=== PATIENT | male | born 1995 | race Hispanic/Latino ===

== ENCOUNTER 2016-09-25 09:20 | Emergency (ER) | payer OTHER ==
[2016-09-25 09:27] VITALS: BP 100/65; PULSE 71; RESP 16; TEMP 98.7; O2SAT 98
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
== END 2016-09-25 10:54 | disposition home or self-care (01) ==
LOC: ED 09:20
DX: S62.604A Fracture of unspecified phalanx of right ring finger, initial encounter for closed fracture (principal); Y08.89XA Assault by other specified means, initial encounter; Y93.89 Activity, other specified; Y92.89 Other specified places as the place of occurrence of the external cause

== ENCOUNTER 2016-10-27 07:16 | Emergency (ER) | payer OTHER ==
[2016-10-27 07:26] VITALS: TEMP 98; O2SAT 100
[2016-10-27] MEDS ORDERED: Sodium Chloride 0.9% 1,000 ML IV STA (07:40)
[2016-10-27 08:03] LABS: BASO # 0.02 K/mm3 (0.0-2.0); BASO % 0.4 % (0.0-3.0); EOS # 0.1 (0.0-0.7); EOS % 2.6 % (1.5-5.0); GRAN % 56.4 % (50.0-68.0); HEMOGLOBIN 16.3 gm/dL (14.0-18.0); LYMPH # 1.4 (1.2-3.4); LYMPH % 25.7 % (22.0-35.0); MEAN CELL VOLUME 85.4 fL (80.0-105.0); MEAN CORPUSCULAR HEMOGLOBIN 30.9 pg (25.0-35.0); MEAN CORPUSCULAR HGB CONC 36.2 g/dl (31.0-37.0); MEAN PLATELET VOLUME 9.1 fl (7.0-11.0); MONO # 0.8 (0.1-0.6); MONO % 14.9 % (1.0-6.0); PLATELET COUNT 172 10^3/uL (120.0-450.0); RBC 5.27 10^6/uL (3.5-6.1); RED CELL DISTRIBUTION WIDTH 12.9 % (11.5-14.5); WHITE BLOOD COUNT 5.5 10^3/ul (4.5-11.0)
[2016-10-27 08:13] LABS: ALB/GLOB RATIO 1.5 (1.1-1.8); ALBUMIN 4.7 g/dL (3.0-4.8); ALT/SGPT 36 U/L (7-56); AST/SGOT 50 U/L (15-59); BLOOD UREA NITROGEN 15 mg/dL (7-21); CALCIUM 9.9 mg/dL (8.4-10.5); GFR AFRICAN-AMERICAN > 60; GFR NON-AFRICAN AMERICAN > 60
[2016-10-27] MEDS ORDERED: Potassium Chloride 20 mEq ER Tab PO STA (08:21)
--- NOTE | 2016-10-27 08:24 | ED PDOC ---
Arrival/HPI - General Chief Complaint: GI Problem Time Seen by Provider: 10/27/16 07:26 Historian: Patient - History of Present Illness Narrative History of Present Illness (Text): 10/27/16 08:26 A 21 year old male, who denies any past medical history, presents to the emergency department complaining of diarrhea, cough and one episode of vomiting. Reports yellow and watery bowel movements for the past three days. Notes a cough, sore throat, and runny nose for the past week, which he took cold and sinus medication. Mother reports patient may have been exposed to a tick. Patient also notes some soreness and pain in arms, decrease in appetite, subjective fevers at night and nausea but denies any other complaints at this time. Symptom Onset: Sudden Symptom Course: Unchanged Activities at Onset: Rest Context: Home Past Medical History - Provider Review Nursing Documentation Reviewed: Yes - Infectious Disease Hx of Infectious Diseases: None - Psychiatric Hx Psychophysiologic Disorder: No Hx Substance Use: Yes (CANNABIS) - Anesthesia Hx Anesthesia: No Hx Anesthesia Reactions: No Hx Malignant Hyperthermia: No Family/Social History - Physician Review Nursing Documentation Reviewed: Yes Family/Social History: No Known Family HX Smoking Status: Light Smoker < 10 Cigarettes Daily Hx Alcohol Use: Yes Frequency of alcohol use: Socially Hx Substance Use: Yes (CANNABIS) Allergies/Home Meds Allergies/Adverse Reactions: Allergies No Known Allergies Allergy (Verified 10/27/16 07:26) Home Medications: Home Meds Medication Instructions Recorded Confirmed No Known Home Med 10/27/16 10/27/16 Review of Systems - Review of Systems Constitutional: Fatigue, Fevers. absent: Weight Change, Night Sweats Eyes: absent: Vision Changes ENT: Sore Throat, Rhinorrhea, Sinus Congestion. absent: Hearing Changes Respiratory: Cough. absent: SOB, Wheezing Cardiovascular: absent: Calf Pain, Syncope Gastrointestinal: Diarrhea, Nausea, Vomiting, Appetite Changes. absent: Abdominal Pain, Hematochezia, Hematemesis, Food Intolerance Genitourinary Male: absent: Frequency Musculoskeletal: Arthralgias. absent: Back Pain, Neck Pain, Joint Swelling, Myalgias Skin: absent: Rash Neurological: absent: Headache, Dizziness, Focal Weakness Endocrine: absent: Polydipsia Hemo/Lymphatic: absent: Easy Bleeding Psychiatric: absent: Anxiety, Depression Physical Exam - Physical Exam Narrative Physical Exam (Text): 10/27/16 08:24 Head: Atraumatic. Normocephalic. No lesions. Eyes: PERRL. EOMI. Conjunctivae are not pale. ENT: Mucous membranes are moist and intact. Oropharynx is clear and symmetric. No edema. No exudates. No uvular deviation. TMs clear bilaterally with no edema or erythema. Neck: Supple. Full ROM. No JVD. No lymphadenopathy. No palpable cervical nodes. No meningeal signs. Cardiovascular: Regular rate. Regular rhythm. No murmurs, rubs, or gallops. Distal pulses are 2+ and symmetric. Pulmonary/Chest: No evidence of respiratory distress. Clear to auscultation bilaterally. No wheezing, rales or rhonchi. Abdominal: Soft and non-distended. There is no tenderness. No rebound, guarding, or rigidity. No organomegaly. Good bowel sounds. Back: No CVA tenderness. No paraspinal tenderness. Normal inspection. Extremities: No edema. No cyanosis. No clubbing. Full range of motion in all extremities. No calf tenderness. No joint warmth or erythema or edema in the upper or lower extremities. Skin: Skin is warm and dry. No petechiae. No purpura. NO vesicular rash. No urticaria. Neurological: Alert, awake, and oriented to person, place, time, and situation. Normal speech. No meningeal signs. Psychiatric: Good eye contact. Normal interaction, affect, and behavior. Vital Signs Reviewed: Yes Vital Signs Temp Pulse Resp BP Pulse Ox 10/27/16 11:48 81 16 124/82 100 10/27/16 10:13 83 16 122/80 100 10/27/16 07:21 98 F 91 H 19 127/83 100 Temperature: Afebrile Blood Pressure: Normal Pulse: Regular Respiratory Rate: Normal Appearance: Positive for: Well-Appearing, Non-Toxic, Comfortable Pain Distress: None Mental Status: Positive for: Alert and Oriented X 3 Medical Decision Making ED Course and Treatment: 10/27/16 08:11 Impression: A 21 year old male with diarrhea, cough and one episode of vomiting. Differential Diagnosis included but are not limited to: viral illness vs. colitis vs. gastroenteritis vs. dehydration Plan: -- labs -- IV fluids, Pepcid -- Reassess and disposition Prior Visits: Notes and results from previous visits were reviewed. Patient was last seen in the emergency department on 09/25/16 for evaluation of right 4th finger pain. Progress Notes: History supplemented by mother at bedside. There is no prior history of GI illnesses. Mother and patient deny family history of inflammatory bowel disease. No recent antibiotic usage. No recent travel. He reports several loose stools 3 days ago but states stool is "less than 2-3 times a day" but also more formed. No melena or gross bleeding noted. On exam, NO ABDOMINAL PAIN. He is afebile and nontoxic appearing. Patient with generalized aches, but no pathologic rashes noted, no joint warmth or edema. He complains of cough but lungs are clear and no respiratory distress noted. Lyme titer unremarkable on follow-up. Stool culture sent. As he is afebrile, no pain, no respiratory distress, and FEELS BETTER after ivf and toradol, I replaced K orally and discussed in length with patient and mother need for close follow-up as labs and ER visit may be limited in evaluating for underlying rheumatologic process, although patient is comfortable on re-exam and will follow-up with PMD tomorrow he states. - Lab Interpretations Microbiology Results: Microbiology Results 10/27/16 11:17 Urine,Clean Catch Urine Culture - Final No Growth (<1,000 CFU/ML) 10/27/16 10:45 Stool Stool Culture - Final NO SALMONELLA, SHIGELLA OR CAMPYLOBACTER ISOLATED. Lab Results: 10/27/16 07:23 10/27/16 07:23 Lab Results 10/27/16 10:45: Urine Color Light yellow, Urine Appearance Clear, Urine pH 7.0, Ur Specific Stanley <= 1.005, Urine Protein Negative, Urine Glucose (UA) Negative, Urine Ketones Negative, Urine Blood Negative, Urine Nitrate Negative, Urine Bilirubin Negative, Urine Urobilinogen 0.2, Ur Leukocyte Esterase Trace H , Urine RBC Negative, Urine WBC 0 - 2, Ur Epithelial Cells 0 - 2 10/27/16 09:50: Total Creatine Kinase 75 10/27/16 07:23: Lyme Disease Screen <0.90 10/27/16 07:23: Sodium 135, Potassium 3.2 L, Chloride 99, Carbon Dioxide 22, Anion Gap 17, BUN 15, Creatinine 0.9, Est GFR ( Amer) > 60, Est GFR (Non- Af Amer) > 60, Random Glucose 97, Calcium 9.9, Total Bilirubin 1.0, AST 50, ALT 36, Alkaline Phosphatase 85, Total Protein 7.9, Albumin 4.7, Globulin 3.2, Albumin/Globulin Ratio 1.5 10/27/16 07:23: WBC 5.5, RBC 5.27, Hgb 16.3, Hct 45.0, MCV 85.4, MCH 30.9, MCHC 36.2, RDW 12.9, Plt Count 172, MPV 9.1, Gran % 56.4, Lymph % (Auto) 25.7, [place] % (Auto) 14.9 H, Eos % (Auto) 2.6, Baso % (Auto) 0.4, Gran # 3.10, Lymph # 1.4, [place] # 0.8 H, Eos # 0.1, Baso # 0.02 I have reviewed the lab results: Yes - Medication Orders Current Medication Orders: Discontinued Medications Famotidine (Pepcid) 20 mg IVP STAT STA Stop: 10/27/16 07:41 Last Admin: 10/27/16 07:52 Dose: 20 mg Sodium Chloride (Sodium Chloride 0.9%) 1,000 mls @ 1,000 mls/hr IV .Q1H STA Stop: 10/27/16 08:39 Last Admin: 10/27/16 07:53 Dose: 1,000 mls/hr Sodium Chloride (Sodium Chloride 0.9%) 1,000 mls @ 100 mls/hr IV .Q10H [facility] Last Admin: 10/27/16 10:12 Dose: 100 mls/hr Ketorolac Tromethamine (Toradol) 30 mg IVP ONCE ONE Stop: 10/27/16 09:48 Last Admin: 10/27/16 10:13 Dose: 30 mg Potassium Chloride (K-Dur 20 Meq Er Tab) 40 meq PO STAT STA Stop: 10/27/16 08:22 Last Admin: 10/27/16 08:43 Dose: 40 meq - Scribe Statement The provider has reviewed the documentation as recorded by the Rabia Lozano Provider Scribe Attestation: All medical record entries made by the Scribzhane were at my direction and personally dictated by me. I have reviewed the chart and agree that the record accurately reflects my personal performance of the history, physical exam, medical decision making, and the department course for this patient. I have also personally directed, reviewed, and agree with the discharge instructions and disposition. Disposition/Present on Arrival - Present on Arrival Any Indicators Present on Arrival: No History of DVT/PE: No History of Uncontrolled Diabetes: No Urinary Catheter: No History of Decub. Ulcer: No History Surgical Site Infection Following: None - Disposition Have Diagnosis and Disposition been Completed?: Yes Diagnosis: Gastroenteritis, Arthralgia Disposition: HOME/ ROUTINE Disposition Time: 11:30 Patient Plan: Discharge Condition: GOOD Discharge Instructions (ExitCare): Gastroenteritis (ED) Additional Instructions: For any fevers, joint swelling or persistent pain, chest pain or shortness of breath, headaches, nausea or vomiting, bloody stool, abdominal pain, persistent diarrhea, persistent or worsening of symptoms, get rechecked. Follow-up with your primary care doctor in 1-2 days. Forms: [employer] (Japanese)
[2016-10-27] MEDS ORDERED: Sodium Chloride 0.9% 1,000 ML IV SCH (09:30)
[2016-10-27 10:14] VITALS: RESP 16
[2016-10-27 11:02] LABS: URINE BILIRUBIN NEGATIVE (NEGATIVE); URINE BLOOD NEGATIVE (NEGATIVE); URINE GLUCOSE (UA) NEGATIVE (NEGATIVE); URINE LEUKOCYTE ESTERASE TRACE Leu/uL (NEGATIVE); URINE NITRATE NEGATIVE (NEGATIVE); URINE PROTEIN NEGATIVE mg/dL (<30 mg/dL); URINE UROBILINOGEN 0.2 E.U./dL (<1 E.U./dL)
[2016-10-27 11:09] LABS: URINE APPEARANCE CLEAR (CLEAR); URINE COLOR LIGHT YELLOW (YELLOW); URINE RBC NEGATIVE /hpf (0-2); URINE WBC 0 - 2 /hpf (0-6)
[2016-10-27 11:10] LABS: URINE EPITHELIAL CELLS 0 - 2 /hpf (0-5)
[2016-10-27 11:48] VITALS: BP 124/82; PULSE 81
== END 2016-10-27 11:48 | disposition home or self-care (01) ==
LOC: ED 07:16
DX: K52.9 Noninfective gastroenteritis and colitis, unspecified (principal); M25.50 Pain in unspecified joint
CPT/HCPCS: 80053; 81001; 82550; 85025; 86618; 87045; 87086; 96361; 96374; 96375; 99283; J1885; J7040

== ENCOUNTER 2017-07-07 21:03 | Emergency (ER) | payer OTHER ==
[2017-07-07 21:17] VITALS: BP 122/74; PULSE 76; RESP 18; TEMP 98.1; O2SAT 99
[2017-07-07] MEDS ORDERED: Fluorescein 1 mg Ophthalmic Strip OU ONE (21:46)
[2017-07-07] MEDS ORDERED: Tetracaine 0.5% Ophth 2 ML BOTTLE OU STA (21:46)
[2017-07-07] MEDS ORDERED: Oxycodone/Acetaminophen 5/325 mg Tab PO STA (21:48)
--- NOTE | 2017-07-07 21:53 | ED PDOC ---
Arrival/HPI - General Chief Complaint: Eye Problem Time Seen by Provider: 07/07/17 21:40 Historian: Patient - History of Present Illness Narrative History of Present Illness (Text): 07/07/17 21:49 22 year old male, who denies any past medical history, presents to the emergency department complaining of worsening bilateral eye pain that began 4 days ago. Patient reports he went to the emergency department in [place] and then followed up with the eye doctor 4 days ago who did a full exam and prescribed Prednesolone drops with no relief. Patient is a contact user and reports photophobia, but denies any fever, chills, nausea, vomiting, diarrhea, back pain, neck pain, headache, dizziness, trauma/injury, or any other complaints. Time/Duration: Other (4 days ago) Symptom Onset: Sudden Symptom Course: Worsening Activities at Onset: Light Context: Home Past Medical History - Provider Review Nursing Documentation Reviewed: Yes - Infectious Disease Hx of Infectious Diseases: None - Psychiatric Hx Psychophysiologic Disorder: No Hx Substance Use: Yes (CANNABIS) - Anesthesia Hx Anesthesia: No Hx Anesthesia Reactions: No Hx Malignant Hyperthermia: No Family/Social History - Physician Review Nursing Documentation Reviewed: Yes Family/Social History: No Known Family HX Smoking Status: Light Smoker < 10 Cigarettes Daily Hx Alcohol Use: Yes Hx Substance Use: Yes (CANNABIS) Allergies/Home Meds Allergies/Adverse Reactions: Allergies No Known Allergies Allergy (Verified 10/27/16 07:26) Review of Systems - Physician Review All systems were reviewed & negative as marked: Yes - Review of Systems Constitutional: absent: Fevers, Other (Chills) Eyes: Photophobia, Eye Pain Gastrointestinal: absent: Diarrhea, Nausea, Vomiting Musculoskeletal: absent: Back Pain, Neck Pain Neurological: absent: Headache, Dizziness Physical Exam Vital Signs Reviewed: Yes Vital Signs Temp Pulse Resp BP Pulse Ox 07/07/17 21:06 98.1 F 76 18 122/74 99 Temperature: Afebrile Blood Pressure: Normal Pulse: Regular Respiratory Rate: Normal Appearance: Positive for: Well-Appearing, Non-Toxic, Comfortable Pain Distress: None Mental Status: Positive for: Alert and Oriented X 3 - Systems Exam Head: Present: Atraumatic, Normocephalic Pupils: Present: PERRL, Other (Deep corneal ulcer. Left eye worse than the right ) Extroacular Muscles: Present: EOMI Conjunctiva: Present: Injected, Other (Ciliary Flush. Conjunctivitis. keratoconjunctivitis) Mouth: Present: Moist Mucous Membranes Respiratory/Chest: Present: Clear to Auscultation, Good Air Exchange. No: Respiratory Distress, Accessory Muscle Use Cardiovascular: Present: Regular Rate and Rhythm, Normal S1, S2. No: Murmurs Medical Decision Making ED Course and Treatment: 07/07/17 21:49 Impression: 22 year old male presents complaining of bilateral eye pain that began 4 days ago associated with photophobia. Plan: -- [id number], Percocet, Tetracaine, Zofran -- Reassess and disposition Progress Notes: - Medication Orders Current Medication Orders: Discontinued Medications Fluorescein Sodium (Hcfcj-A-Heblz A.T.) 2 mg OU ONCE ONE Stop: 07/07/17 21:47 Last Admin: 07/07/17 21:56 Dose: 2 mg Ondansetron HCl (Zofran Odt) 8 mg PO STAT STA Stop: 07/07/17 21:49 Last Admin: 07/07/17 22:06 Dose: 8 mg Oxycodone/Acetaminophen (Percocet 5/325 Mg Tab) 2 tab PO STAT STA Stop: 07/07/17 21:49 Last Admin: 07/07/17 22:06 Dose: 2 tab MAR Pain Assessment Document 07/07/17 22:06 OCS (Rec: 07/07/17 22:06 [id number] Pain Reassessment Is this a pain reassessment? No Sleep Is patient sleeping during reassessment? No Presence of Pain Presence of Pain Yes Location Left, Right or Bilateral Bilateral Pain Location Body Site Eye Description Description Constant Intensity of Pain at present 10 Aggravating Factors ADL's Tetracaine HCl (Tetracaine 0.5% Ophth Soln) 2 drop OU STAT STA Stop: 07/07/17 21:47 Last Admin: 07/07/17 21:56 Dose: 2 drop Tobramycin Sulfate (Tobrex 0.3% Ophth Soln) 2 drop OU STAT STA Stop: 07/07/17 22:13 Last Admin: 07/07/17 22:25 Dose: 2 drop - PA / [employer]PARTMENT OF [employer]URAL [employer] OFFICER / Resident Statement MD/DO has reviewed & agrees with the documentation as recorded. - Scribe Statement The provider has reviewed the documentation as recorded by the Scribe Blanco Harrisour Provider Scribe Attestation: All medical record entries made by the Scribe were at my direction and personally dictated by me. I have reviewed the chart and agree that the record accurately reflects my personal performance of the history, physical exam, medical decision making, and the department course for this patient. I have also personally directed, reviewed, and agree with the discharge instructions and disposition. Disposition/Present on Arrival - Present on Arrival Any Indicators Present on Arrival: No History of DVT/PE: No History of Uncontrolled Diabetes: No Urinary Catheter: No History of Decub. Ulcer: No History Surgical Site Infection Following: None - Disposition Have Diagnosis and Disposition been Completed?: Yes Diagnosis: Keratoconjunctivitis, Corneal ulcer Disposition: HOME/ ROUTINE Disposition Time: 22:39 Patient Plan: Discharge Patient Problems: Current Active Problems Problem Status Onset Keratoconjunctivitis Acute Corneal ulcer Acute Condition: FAIR Discharge Instructions (ExitCare): Corneal Ulcer (DC) Additional Instructions: Jimmy - Dr. Jarvis HAMLIN, , Ophthalomologist alarm installation technician Jimmy- I know this hurts really badly. Use the percocet if you need to, wear sunglasses and use the Tobramycin Eye Drops in both eyes four to six times a day. Zofran is for the upset stomach from the percocet. RETURN TO US IF ANY PROBLEMS Best- Dr. James Hardwick Google Search: Keratoconjunctivitis Keratitis Corneal Ulcer Pseudomonas infection in contact lens wearers. Prescriptions: Ondansetron ODT [Zofran ODT] 8 mg PO TID #30 odt oxyCODONE/Acetaminophen [Percocet 5/325 mg Tab] 1 tab PO QID #20 tab Tobramycin [Tobrex] 2 drop OU TID #5 ml [facility] - Follow up with primary Jose Hamlin [Staff Provider] - Follow up with primary Forms: [employer] (Belgian), WORK NOTE, SCHOOL NOTE
[2017-07-07] MEDS ORDERED: Tobramycin 0.3% OPHT SOLN OU STA (22:12)
== END 2017-07-07 23:23 | disposition home or self-care (01) ==
LOC: ED 21:03
DX: H16.009 Unspecified corneal ulcer, unspecified eye (principal); H16.209 Unspecified keratoconjunctivitis, unspecified eye; F17.210 Nicotine dependence, cigarettes, uncomplicated